=== PATIENT | female | born 1965 | race Caucasian/White ===

== ENCOUNTER 2018-11-02 21:30 | Inpatient (IN) | payer MEDICAID ==
[~2018-11-02] VITALS: Ht 157.5 cm; Wt 59.0 kg
[2018-11-02] MEDS ORDERED: SODIUM CHLORIDE 0.9% 1000ML BAG (SEPSIS BOLUS) IV ONE (22:30)
[2018-11-02 22:39] LABS: BASOPHILS % 0.6 % (0.0-2.0); EOSINOPHILS % 6.5 % (0.0-5.0); HEMATOCRIT. 40.3 % (36.0-48.0); HEMOGLOBIN. 13.5 g/dL (12.0-16.0); LYMPHOCYTES % 13.7 % (20.0-50.0); MEAN CORPUSCULAR HEMOGLOBIN 30.7 pg (28.0-32.0); MEAN CORPUSCULAR VOLUME 91.7 fL (81.0-99.0); MEAN PLATELET VOLUME 9.2 fl (7.4-10.4); MONOCYTES % 8.7 % (2.0-8.0); NEUTROPHILS % 70.5 % (40.0-76.0); PLATELET 187 x1000/uL (130-400); RED CELL DISTRIBUTION WIDTH 14.6 % (11.6-14.6)
[2018-11-02 22:41] LABS: CHLORIDE 107 mEq/L (98-107)
[2018-11-02 22:46] LABS: D-DIMER 0.23 mg/L FEU (<0.50); PARTIAL THROMBOPLASTIN TIME 26.9 sec (23.4-31.0); PROTHROMBIN TIME 10.3 sec (9.1-11.1)
[2018-11-02 23:45] LABS: CLARITY URINE CLEAR (CLEAR); COLOR URINE YELLOW (YELLOW); KETONES URINE NEGATIVE (NEGATIVE); LEUKOCYTE ESTERASE URINE NEGATIVE (NEGATIVE); NITRITE URINE NEGATIVE (NEGATIVE); OCCULT BLOOD URINE TRACE (NEGATIVE); PH URINE 6.5 (4.5-8.0); PROTEIN URINE NEGATIVE (NEGATIVE); SPECIFIC GRAVITY URINE 1.014 (1.005-1.030); UROBILINOGEN URINE 0.2 E.U./dL (0.2-1.0)
[2018-11-03] MEDS ORDERED: ASPIRIN 325MG EC TABLET PO ONE (01:15)
[2018-11-03] MEDS ORDERED: KETOROLAC 30MG/ML VIAL IV ONE (01:45)
[2018-11-03] MEDS ORDERED: CETI10TA6 PO (09:42)
[2018-11-03] MEDS ORDERED: ONDANSETRON HCL 4MG/2ML INJ IV PRN ×2 (10:00→10:15)
[2018-11-03] MEDS ORDERED: HYDROCODONE/ACETAMINOPHEN 5/325MG TABLET PO PRN ×2 (10:00→10:15)
[2018-11-03] MEDS ORDERED: ACETAMINOPHEN 650MG/20.3ML UDC GT PRN ×2 (10:00→10:15)
[2018-11-03] MEDS ORDERED: IPRATROPIUM/ALBUTEROL 0.5-3(2.5)MG/3ML NEB INH PRN ×2 (10:00→10:15)
[2018-11-03] MEDS ORDERED: NA PHOS,M-B/NA PHOS,DI-BA ENEMA 118ML PR PRN ×2 (10:00→10:15)
[2018-11-03] MEDS ORDERED: GUAIFENESIN 200MG/10ML SUGAR FREE UDC PO PRN ×2 (10:00→10:15)
[2018-11-03] MEDS ORDERED: ACETAMINOPHEN 325MG TABLET PO PRN ×2 (10:00→10:15)
[2018-11-03] MEDS ORDERED: ENOXAPARIN 40MG/0.4ML SYR SUBCUT SCH (10:00)
[2018-11-03] MEDS ORDERED: CLONIDINE 0.1MG TABLET PO PRN ×2 (10:00→10:15)
[2018-11-03] MEDS ORDERED: DIPHENHYDRAMINE 50MG/ML VIAL IV PRN ×2 (10:00→10:15)
[2018-11-03] MEDS ORDERED: DOCUSATE SODIUM 100MG CAPSULE PO PRN ×2 (10:00→10:15)
[2018-11-03] MEDS ORDERED: MAGNESIUM/ALUMINUM HYDROXIDE/SIMETHICONE 30ML UDC PO PRN ×2 (10:00→10:15)
[2018-11-03] MEDS ORDERED: ACETAMINOPHEN 650MG SUPP PR PRN ×2 (10:00→10:15)
[2018-11-03 11:11] VITALS: BP 128/66
[2018-11-03 12:00] VITALS: BP 128/66
[2018-11-03] MEDS ORDERED: ALBUTEROL (0.083%) 2.5MG/3ML NEB HHN SCH ×2 (12:00)
[2018-11-03] MEDS: ENOXAPARIN 40MG/0.4ML SYR SUBCUT SCH (12:07)
[2018-11-03] MEDS ORDERED: AZITHROMYCIN 500 MG in DEXT 5% WATER 250 ML IV SCH (13:00)
[2018-11-03] MEDS ORDERED: PNEUMOCOCCAL 23-VAL P-SAC VAC 0.5 ML IM ONE (13:45)
[2018-11-03 13:52] LABS: BASOPHILS % 0.9 % (0.0-2.0); EOSINOPHILS % 10.6 % (0.0-5.0); HEMATOCRIT. 38.8 % (36.0-48.0); HEMOGLOBIN. 12.9 g/dL (12.0-16.0); LYMPHOCYTES % 24.6 % (20.0-50.0); MEAN CORPUSCULAR HEMOGLOBIN 30.6 pg (28.0-32.0); MEAN CORPUSCULAR VOLUME 91.8 fL (81.0-99.0); MEAN PLATELET VOLUME 9.2 fl (7.4-10.4); MONOCYTES % 13.4 % (2.0-8.0); NEUTROPHILS % 50.5 % (40.0-76.0); PLATELET 179 x1000/uL (130-400); RED BLOOD CELL COUNT 4.22 mill/uL (4.2-5.4); RED CELL DISTRIBUTION WIDTH 14.8 % (11.6-14.6)
[2018-11-03] MEDS ORDERED: SODIUM CHLORIDE 0.9% INJ 3ML FLUSH IVF SCH (14:00)
[2018-11-03] MEDS: SODIUM CHLORIDE 0.9% INJ 3ML FLUSH IVF SCH ×2 (14:00→21:33)
[2018-11-03 14:19] LABS: CHLORIDE 112 mEq/L (98-107)
[2018-11-03] MEDS ORDERED: IOHEXOL-350 100 ML BOTTLE ONE (15:13)
[2018-11-03 16:00] VITALS: BP 124/59
[2018-11-03] MEDS: CEFTRIAXONE 1 G PREMIX 50 ML IV SCH (18:38)
[2018-11-03] MEDS: METHYLPREDNISOLONE SOD SUCC 40 MG/ML VIAL IV SCH (18:49)
[2018-11-03 20:00] VITALS: BP 116/74
[2018-11-03] MEDS ORDERED: INFLUENZA VIRUS VACCINE(AFLURIA) 0.5ML SYR IM ONE (20:00)
[2018-11-03 20:08] LABS: CREATINE KINASE 60 IU/L (26-192)
[2018-11-03 20:09] LABS: CREATINE KINASE MB FRACTION < 1.0 ng/mL (0.5-3.6)
[2018-11-03] MEDS: ALBUTEROL (0.083%) 2.5MG/3ML NEB HHN SCH (21:07)
[2018-11-03] MEDS: OXYMETAZOLINE HCL NASAL SPRAY 15ML BOTHNSTRLS SCH (21:33)
[2018-11-04] VITALS: BP 113/55
[2018-11-04] MEDS: AZITHROMYCIN 500 MG in DEXT 5% WATER 250 ML IV SCH (00:30)
[2018-11-04] MEDS: ALBUTEROL (0.083%) 2.5MG/3ML NEB HHN SCH ×4 (01:35→21:31)
[2018-11-04 04:00] VITALS: BP 109/64
[2018-11-04] MEDS: METHYLPREDNISOLONE SOD SUCC 40 MG/ML VIAL IV SCH (04:25)
[2018-11-04] MEDS: SODIUM CHLORIDE 0.9% INJ 3ML FLUSH IVF SCH ×3 (05:11→21:21)
[2018-11-04 07:58] LABS: HEMATOCRIT. 38.2 % (36.0-48.0); HEMOGLOBIN. 12.8 g/dL (12.0-16.0); MEAN CORPUSCULAR HEMOGLOBIN 30.8 pg (28.0-32.0); MEAN CORPUSCULAR VOLUME 91.8 fL (81.0-99.0); PLATELET 183 x1000/uL (130-400); RED BLOOD CELL COUNT 4.16 mill/uL (4.2-5.4); RED CELL DISTRIBUTION WIDTH 14.6 % (11.6-14.6)
[2018-11-04 08:00] VITALS: BP 122/74
[2018-11-04 08:07] LABS: CHLORIDE 104 mEq/L (98-107)
[2018-11-04 08:18] LABS: LDL CHOLESTEROL 101 mg/dL (5-100)
[2018-11-04 08:19] LABS: CREATINE KINASE 43 IU/L (26-192)
[2018-11-04 08:20] LABS: HDL CHOLESTEROL 62 mg/dL (40-59)
[2018-11-04 08:23] LABS: CREATINE KINASE MB FRACTION < 1.0 ng/mL (0.5-3.6)
[2018-11-04] MEDS: FLUTICASONE PROPIONATE 50MCG/SPRAY BOTTLE BOTHNSTRLS SCH (09:31)
[2018-11-04] MEDS: ENOXAPARIN 40MG/0.4ML SYR SUBCUT SCH (09:32)
[2018-11-04] MEDS: OXYMETAZOLINE HCL NASAL SPRAY 15ML BOTHNSTRLS SCH ×2 (09:32→21:21)
[2018-11-04 12:00] VITALS: BP 105/68
[2018-11-04] MEDS: METHYLPREDNISOLONE SOD SUCC 125 MG/2 ML VIAL IV SCH ×2 (12:40→21:21)
[2018-11-04 15:18] LABS: PLATELET ESTIMATE NORMAL
[2018-11-04 16:00] VITALS: BP 116/80
[2018-11-04] MEDS ORDERED: IPRATROPIUM/ALBUTEROL 0.5-3(2.5)MG/3ML NEB HHN SCH (18:00)
[2018-11-04] MEDS: CEFTRIAXONE 1 G PREMIX 50 ML IV SCH (18:21)
[2018-11-04 20:00] VITALS: BP 119/62
[2018-11-04] MEDS: GUAIFENESIN 600MG ER TABLET PO SCH (21:21)
[2018-11-05] VITALS: BP 111/60
[2018-11-05] MEDS: AZITHROMYCIN 500 MG in DEXT 5% WATER 250 ML IV SCH (00:17)
[2018-11-05] MEDS: ALBUTEROL (0.083%) 2.5MG/3ML NEB HHN SCH ×2 (00:45→04:38)
[2018-11-05 04:00] VITALS: BP 112/56
[2018-11-05] MEDS: METHYLPREDNISOLONE SOD SUCC 125 MG/2 ML VIAL IV SCH (05:16)
[2018-11-05] MEDS: SODIUM CHLORIDE 0.9% INJ 3ML FLUSH IVF SCH (06:00)
[2018-11-05 06:45] LABS: HEMATOCRIT. 37.5 % (36.0-48.0); HEMOGLOBIN. 12.5 g/dL (12.0-16.0); MEAN CORPUSCULAR HEMOGLOBIN 30.7 pg (28.0-32.0); MEAN CORPUSCULAR VOLUME 91.9 fL (81.0-99.0); MEAN PLATELET VOLUME 9.3 fl (7.4-10.4); PLATELET 191 x1000/uL (130-400); RED BLOOD CELL COUNT 4.08 mill/uL (4.2-5.4)
[2018-11-05 07:10] LABS: CHLORIDE 107 mEq/L (98-107)
[2018-11-05 08:00] VITALS: BP 108/52
[2018-11-05] MEDS ORDERED: P50 MT (08:18)
[2018-11-05] MEDS ORDERED: ALBU90AE INH (08:18)
[2018-11-05] MEDS ORDERED: AZIT500T2 MT (08:18)
[2018-11-05] MEDS: FLUTICASONE PROPIONATE 50MCG/SPRAY BOTTLE BOTHNSTRLS SCH (09:24)
[2018-11-05] MEDS: GUAIFENESIN 600MG ER TABLET PO SCH (09:24)
[2018-11-05] MEDS: OXYMETAZOLINE HCL NASAL SPRAY 15ML BOTHNSTRLS SCH (09:24)
[2018-11-05] MEDS: ENOXAPARIN 40MG/0.4ML SYR SUBCUT SCH (09:25)
[2018-11-05 09:59] VITALS: BP 108/52
[2018-11-05 15:48] LABS: PLATELET ESTIMATE NORMAL
== END 2018-11-05 10:38 | disposition home or self-care (01) | DRG 720 ==
LOC: ER 21:30 → 7WST 11-03 01:03 → ENRESERV 11-03 07:42 → ER 11-03 09:55
PROVIDERS: ADMIT Family Medicine; ATTEND Family Medicine
DX: A41.9 Sepsis, unspecified organism (principal); J96.00 Acute respiratory failure, unspecified whether with hypoxia or hypercapnia; J18.9 Pneumonia, unspecified organism; J20.9 Acute bronchitis, unspecified; R07.81 Pleurodynia; J45.20 Mild intermittent asthma, uncomplicated; F41.0 Panic disorder [episodic paroxysmal anxiety]; Z87.891 Personal history of nicotine dependence
CPT/HCPCS: 36415; 71045; 71275; 80048; 80061; 82550; 82553; 83605; 83880; 84145; 84484; 85379; 87070; 87430; 87804; 93005; 93306; 94640; 96374; 99285; J0456; J0696; J1650; J1885; J2920; J2930; J7030; J7050; J7060; J7611; J7620; Q9967